=== PATIENT | male | born 1955 | race Caucasian/White ===

== ENCOUNTER 2023-05-15 20:13 | Emergency (ER) | payer OTHER ==
[~2023-05-15] VITALS: Ht 180.3 cm; Wt 59.0 kg
--- NOTE | 2023-05-15 20:14 | NUR ---
PT TO [facility]
[2023-05-15 20:21] VITALS: BP 184/120; PULSE 83; RESP 18; TEMP 98; O2SAT 98
[2023-05-15] MEDS ORDERED: CLONIDINE HYDROCHLORIDE 0.1 MG TAB PO ONE (20:30)
--- NOTE | 2023-05-15 21:17 | NUR ---
per P Officer will discharge pt to ER. ER MD Sandoval aware and spoke with officer.
[2023-05-15 21:24] VITALS: BP 192/110; PULSE 81; RESP 18; TEMP 98; O2SAT 98
--- NOTE | 2023-05-15 21:24 | NUR ---
Patient discharged with ER MD Sandoval aware of Patient's increased blood pressure but is comfortable sending patient home. Written and verbal after care instructions given and explained. Patient verbalized understanding. Ambulatory with steady gait. ID band removed. All questions addressed prior to discharge. Advised to follow up with PMD.
== END 2023-05-15 21:24 | disposition home or self-care (01) ==
LOC: MED 20:13
DX: I10 Essential (primary) hypertension (principal); Z02.89 Encounter for other administrative examinations; Z88.0 Allergy status to penicillin; Z79.899 Other long term (current) drug therapy; Z95.1 Presence of aortocoronary bypass graft
CPT/HCPCS: 99283